=== PATIENT | female | born 1975 | race Caucasian/White ===

== ENCOUNTER 2017-11-20 10:48 | Emergency (ER) | payer BC | END 2017-11-20 12:19 | disposition left against medical advice (07) | LOC: UCCORT 10:48 | DX: J02.9 Acute pharyngitis, unspecified (principal); Z53.21 Procedure and treatment not carried out due to patient leaving prior to being seen by health care provider ==

== ENCOUNTER 2018-08-27 12:44 | Emergency (ER) | payer BC ==
[2018-08-27 13:11] VITALS: BP 130/62
--- NOTE | 2018-08-27 13:18 | UC ---
UC General HPI - HPI Summary HPI Summary: 2 DAY HX HEAD CONGESTION, COUGH AND CHEST CONGESTION. TODAY L EAR PAIN. NO FEVER, SOB OR HX LUNG DISEASE - History of Current Complaint Chief Complaint: UCEar Stated Complaint: LEFT EAR COMPLAINT,FEVER Time Seen by Provider: 08/27/18 13:11 Hx Obtained From: Patient Hx Last Menstrual Period: 08/23/18 Onset/Duration: Gradual Onset Timing: Constant Pain Intensity: 2 Associated Signs & Symptoms: Positive: Cough. Negative: Chest Pain, Fever, SOB , Wheezing - Allergy/Home Medications Allergies/Adverse Reactions: Allergies Allergy/AdvReac Type Severity Reaction Status Date / Time amoxicillin Allergy Swelling Verified 08/27/18 13:07 Of Face,Lips,& Throat Home Medications: Home Medications diPHENhydraMINE PO* [Benadryl PO 25 MG TAB*] 25 mg PO Q6H PRN 08/27/18 [History Confirmed 08/27/18] PMH/Surg Hx/FS Hx/Imm Hx Previously Healthy: Yes - Surgical History Surgical History: Yes Surgery Procedure, Year, and Place: Cholecystectomy, 2008, [place] - Family History Known Family History: Negative: Diabetes - Social History Occupation: Employed Full-time Alcohol Use: Occasionally Substance Use Type: None Smoking Status (MU): Never Smoked Tobacco - Immunization History Vaccination Up to Date: Yes Review of Systems All Other Systems Reviewed And Are Negative: Yes Constitutional: Positive: Negative Skin: Positive: Negative Eyes: Positive: Negative ENT: Positive: Sinus Congestion Respiratory: Positive: Cough Cardiovascular: Positive: Negative Gastrointestinal: Positive: Negative Genitourinary: Positive: Negative Motor: Positive: Negative Neurovascular: Positive: Negative Musculoskeletal: Positive: Negative Neurological: Positive: Negative Psychological: Positive: Negative Is Patient Immunocompromised?: No Physical Exam Triage Information Reviewed: Yes Appearance: Well-Appearing Vital Signs: Initial Vital Signs Temp 98.2 F 08/27/18 13:06 Pulse 88 08/27/18 13:06 Resp 18 08/27/18 13:06 BP 130/62 08/27/18 13:06 Pulse Ox 100 08/27/18 13:06 Vital Signs Reviewed: Yes Eyes: Positive: Conjunctiva Clear ENT: Positive: Pharynx normal, Nasal congestion, Nasal drainage - CLEAR, TMs normal - R. L IS SLIGHTLY PINK Neck: Positive: Supple, Nontender, No Lymphadenopathy Respiratory: Positive: Lungs clear, Normal breath sounds, No respiratory distress, Other: - COUGH IS CONGESTED Cardiovascular: Positive: RRR, No Murmur Abdomen Description: Positive: Nontender, No Organomegaly, Soft Bowel Sounds: Positive: Present Musculoskeletal: Positive: ROM Intact Neurological: Positive: Alert Psychological: Positive: Age Appropriate Behavior Skin Exam: Normal Course/Dx - Course Course Of Treatment: EXAM C/W VIRAL URI AND BRONCHITIS PLUS EARLY L OM. EAR DISCOMFORT JUST STARTED TODAY AND FINDING ON LEAR EXAM VERY SUBLE THUS PT TO WAIT ON ANTIBIOTIC, IF NOT IMPROVED BY TOMORROW OR IF WORSE, PT TO START ANTIBIOTIC. USE ZITHROMAX BECAUSE AMOXICILLIN CAUSED FACIAL EDEMA AND RASH. - Differential Dx - Multi-Symptom Provider Diagnoses: URI, BRONCHITS, EARLY L OM. Discharge - Sign-Out/Discharge Documenting (check all that apply): Patient Departure All imaging exams completed and their final reports reviewed: No Studies - Discharge Plan Condition: Stable Disposition: HOME Prescriptions: Azithromycin TAB* [Zithromax TAB (Z-SANDRA) 250 mg #6 tabs] 2 tab PO .TODAY, THEN 1 DAILY #1 sandra Patient Education Materials: Ear Infection (ED), Upper Respiratory Infection ( DC), Acute Bronchitis (ED) Referrals: No Primary Care Phys,NOPCP [Primary Care Provider] - Additional Instructions: FOLLOW UP DR THOMPSON, YOUR PRIMARY CARE IN 7-10 DAYS FOR A RECHECK. FOLLOW UP SOONER IF WORSE. DIAGNOSIS: EARLY L OTITIS MEDIA, UPPER RESPIRATORY INFECTION, BRONCHITIS. START THE ANTIBIOTIC IF NOT IMPROVING BY TOMORROW OF SOONER IF WORSE. - Billing Disposition and Condition Condition: STABLE Disposition: Home
== END 2018-08-27 13:27 | disposition home or self-care (01) ==
LOC: UCCORT 12:44
DX: J06.9 Acute upper respiratory infection, unspecified (principal); J40 Bronchitis, not specified as acute or chronic; H66.92 Otitis media, unspecified, left ear; Z88.0 Allergy status to penicillin
CPT/HCPCS: 99212; G0463